=== PATIENT | female | born 2005 | race Hispanic/Latino ===

== ENCOUNTER 2024-09-22 00:24 | Observation (INO) | payer BC, SELFPAY ==
[2024-09-22] VITALS (18 sets, daily range): BP systolic 101–144; BP diastolic 59–91; PULSE 74–137; RESP 16–32; TEMP 37.1–37.9; O2SAT 99–100; BMI 28.0
--- NOTE | 2024-09-22 00:27 | ECG_ITS ---
Test Date: 2024-09-22 00:48:49 Measurements Intervals [place] Rate: 129 P: 68 SD: 172 QRS: 16 QRSD: 86 T: 45 QT: 387 QTc: 567 Interpretive Statements SINUS TACHYCARDIA POSSIBLE RIGHT VENTRICULAR CONDUCTION DELAY ABNORMAL ECG No previous ECG available for comparison Electronically Signed On 09-22-2024 06:22:25 CDT by Fawad Murillo D.O.
[2024-09-22 00:52] LABS: Basophils Percent Auto 0.3 % (0.2-1.2); Hematocrit 35.2 % (37.0-47.0); Hemoglobin 11.5 g/dL (12.0-15.0); Immature Granulocyte Absolute 0.01 K/mm3 (0.00-0.031); Immature Granulocyte Percent A 0.2 % (0-0.5); Lymphocytes Absolute Auto 1.11 K/mm3 (0.9-3.2); Lymphocytes Percent Auto 18.1 % (18.3-44.2); Mean Corpuscular HGB Conc 32.7 g/dl (32-36); Mean Corpuscular Hemoglobin 28.3 pg (26-34); Mean Corpuscular Volume 86.5 fl (80-100); Mean Platelet Volume 12.6 fl (7.4-10.4); Monocytes Absolute Auto 0.3 K/mm3 (0.1-0.6); Monocytes Percent Auto 4.9 % (2.6-8.5); Neutrophils Absolute Auto 4.7 K/mm3 (1.3-6.7); Neutrophils Percent Auto 76.5 % (45.5-73.1); Platelet Count Result 227 k/mm3 (150-375); Red Blood Count 4.07 M/mm3 (4.2-5.4); Red Cell Distribution Width 13.8 % (11.5-14.5); White Blood Count 6.1 K/mm3 (4.5-10.0)
[2024-09-22] MEDS: LACTATED RINGERS 1,000 ML 999 ML IV CONT ×3 (00:53→08:23)
[2024-09-22 00:59] LABS: Salicylate < 1.0 mg/dL (2-20)
[2024-09-22 01:00] LABS: Acetaminophen 70 ug/mL (10-30); Alanine Aminotransferase 16 U/L (6-35); Albumin Level 4.9 g/dL (3.7-5.6); Alkaline Phosphatase 65 U/L (45-116); Anion Gap 16 mmol/L (4-12); Aspartate Amino Transferase 26 U/L (14-36); Bilirubin,Total 0.3 mg/dL (0.2-1.3); Blood Urea Nitrogen 11 mg/dL (8-21); Calcium 9.9 mg/dL (8.9-10.7); Carbon Dioxide 18 mmol/L (22-30); Chloride 107 mmol/L (98-107); Estimated CRCL calculation 107 ml/min; Estimated Glomerular Filt Rate > 60; Ethanol < 10 mg/dL (<10); Glucose 119 mg/dL (65-110); Potassium 3.8 mmol/L (3.4-5.0); Sodium 141 mmol/L (134-143); Total Protein 8.6 g/dL (6.3-8.6)
[2024-09-22 01:01] LABS: Fractional Inspired Oxygen 21 %; HCO3 VBG 16.7 mEq/l (24.0-30.0); PO2 VBG 48.1 mmHg (35.0-45.0); pH VBG 7.401 (7.300-7.400)
[2024-09-22 01:03] LABS: Device ROOM AIR; PCO2 VBG 27.5 mmHg (42.0-48.0)
--- OUTSIDE RECORDS SUMMARY | 2024-09-22 01:05 | XMS_ITS | Continuity of Care Document ---
Author Organization [facility] Address [address] [place] [address] [place] [id number] Phone Care Team Providers Care Client Insights Consultant Name Role Phone Guanaco PEREZ Mitchell BUCKLEY Unavailable Unavailable Procedures Procedure Date Therapeutic Activities Therapeutic Exercise Progress Note Therapeutic Activities Neuromuscular Re-Ed Therapeutic Exercise Therapeutic Activities Neuromuscular Re-Ed Therapeutic Exercise Therapeutic Activities Neuromuscular Re-Ed Therapeutic Exercise Therapeutic Activities Neuromuscular Re-Ed Therapeutic Exercise Therapeutic Activities Neuromuscular Re-Ed Therapeutic Exercise Therapeutic Activities Neuromuscular Re-Ed Therapeutic Exercise Therapeutic Activities Neuromuscular Re-Ed Therapeutic Exercise Therapeutic Activities Neuromuscular Re-Ed Therapeutic Exercise Therapeutic Activities Neuromuscular Re-Ed Therapeutic Exercise Therapeutic Activities Neuromuscular Re-Ed Therapeutic Activities Neuromuscular Re-Ed Therapeutic Activities Neuromuscular Re-Ed Therapeutic Activities Neuromuscular Re-Ed Therapeutic Exercise Therapeutic Activities Neuromuscular Re-Ed Therapeutic Exercise Therapeutic Activities Neuromuscular Re-Ed Therapeutic Exercise Therapeutic Activities Neuromuscular Re-Ed Therapeutic Exercise Therapeutic Activities Neuromuscular Re-Ed Therapeutic Exercise Therapeutic Activities Therapeutic Exercise Neuromuscular Re-Ed Progress Note Therapeutic Activities Neuromuscular Re-Ed Therapeutic Exercise Therapeutic Activities Neuromuscular Re-Ed Therapeutic Exercise Therapeutic Activities Neuromuscular Re-Ed Therapeutic Exercise Therapeutic Activities Neuromuscular Re-Ed Therapeutic Exercise Therapeutic Activities Neuromuscular Re-Ed Therapeutic Exercise Therapeutic Activities Neuromuscular Re-Ed Therapeutic Exercise Therapeutic Activities Neuromuscular Re-Ed Therapeutic Exercise Therapeutic Activities Neuromuscular Re-Ed Therapeutic Exercise Therapeutic Activities Neuromuscular Re-Ed Therapeutic Exercise Therapeutic Activities Neuromuscular Re-Ed Therapeutic Exercise Progress Note Therapeutic Activities Neuromuscular Re-Ed Therapeutic Exercise Therapeutic Activities Neuromuscular Re-Ed Therapeutic Exercise Progress Note Therapeutic Activities Therapeutic Exercise Therapeutic Activities Neuromuscular Re-Ed Therapeutic Exercise Therapeutic Activities Neuromuscular Re-Ed Therapeutic Exercise Therapeutic Activities Neuromuscular Re-Ed Therapeutic Exercise Therapeutic Activities Neuromuscular Re-Ed Therapeutic Exercise Therapeutic Activities Neuromuscular Re-Ed Therapeutic Exercise Therapeutic Activities Neuromuscular Re-Ed Therapeutic Exercise Therapeutic Activities Neuromuscular Re-Ed Therapeutic Exercise Therapeutic Activities Neuromuscular Re-Ed Therapeutic Exercise Therapeutic Activities Neuromuscular Re-Ed Therapeutic Exercise Therapeutic Activities Neuromuscular Re-Ed Therapeutic Exercise Therapeutic Activities Neuromuscular Re-Ed Therapeutic Exercise Therapeutic Activities Neuromuscular Re-Ed Therapeutic Exercise Therapeutic Activities Neuromuscular Re-Ed Therapeutic Exercise Therapeutic Activities Neuromuscular Re-Ed Therapeutic Exercise Therapeutic Activities Neuromuscular Re-Ed Therapeutic Exercise Therapeutic Activities Neuromuscular Re-Ed Therapeutic Exercise Therapeutic Activities Neuromuscular Re-Ed Therapeutic Exercise Therapeutic Activities Neuromuscular Re-Ed Therapeutic Exercise Electrical Stimulation Therapeutic Activities Neuromuscular Re-Ed Therapeutic Exercise Manual Therapy Electrical Stimulation Therapeutic Activities Neuromuscular Re-Ed Therapeutic Exercise Manual Therapy Electrical Stimulation Therapeutic Activities Neuromuscular Re-Ed Therapeutic Exercise Manual Therapy Electrical Stimulation Therapeutic Activities Neuromuscular Re-Ed Therapeutic Exercise Therapeutic Activities Neuromuscular Re-Ed Hot or Cold Pack Therapeutic Exercise Electrical Stimulation Therapeutic Activities Therapeutic Exercise Neuromuscular Re-Ed Manual Therapy Hot or Cold Pack Electrical Stimulation Progress Note Therapeutic Activities Neuromuscular Re-Ed Therapeutic Exercise Manual Therapy Hot or Cold Pack Electrical Stimulation Neuromuscular Re-Ed Therapeutic Exercise Manual Therapy Hot or Cold Pack Electrical Stimulation Neuromuscular Re-Ed Therapeutic Exercise Manual Therapy Hot or Cold Pack Electrical Stimulation Neuromuscular Re-Ed Therapeutic Exercise Manual Therapy Hot or Cold Pack Electrical Stimulation PT Evaluation Moderate Complexity Neuromuscular Re-Ed Therapeutic Exercise Manual Therapy Electrical Stimulation Advance Directives Directive Yes / No Effective Date File Name No Information Encounters Encounter Description Practice Location Reason(s) For Visit Diagnoses Date Provider Providers Copied on Encounter [facility] [address] [facility], [place], [place], [id number], tel:[phone] [place] No Information 4 Muehl Mitchell. [address] [place] [address], [facility] [address], [place], [facility], . tel:[phone] Referring Provider: Junie VaughnSteve [address], [place], [address]. tel:[phone] [facility] [address] [place], [place] [address], [place], [place], [id number], tel:[phone] [place] No Information 4 Muehl Mitchell. [address] [place] [address], [address], [place], [facility], . tel:[phone] Referring Provider: Paul Vaughn [address], [place], [address]. tel:[phone] [address], [place], [place], [id number], tel:[phone] [place] No Information 0 4 Muashlil Mitchell. [address] [place] [address], [address], [place], [facility], . tel:[phone] Referring Provider: Paul Vaughn [address], [place], [address]. tel:[phone] [facility] [address] [place], [place] [address], [place], [place], [id number], tel:[phone] [place] No Information 0 4 Modglin Mathew. . Referring Provider: Paul Vaughn [address], [place], [address]. tel:[phone] [facility] [address], [place], [place], [id number], tel:[phone] [place] No Information Mar-1 5-202 4 Frederick Macedo. . Referring Provider: Xiomara Webster Paul [address], [place], [address]. tel:[phone], [id number], tel:[phone] [place] No Information Mar-1 3-202 4 Muehl Mitchell. [address] [place] [address], [address], [place], [facility], . tel:[phone] Referring Provider: Xiomara Webster [address], [place], [address]. tel:[phone] [place] [address], [id number], tel:[phone] [place] No Information Mar-0 8-202 4 Muehl Mitchell. [address] [place] [address], [address], [place], [facility], . tel:[phone] Referring Provider: Xiomara Webster [address], [place], [address]. tel:[phone], [id number], tel:[phone] [place] No Information Mar-0 4-202 4 Muehl Mitchell. [address] [place] [address], [facility] [address], [place], [facility], . tel:[phone] Referring Provider: Xiomara Webster [address], [place], [address]. tel:[phone], [id number], tel:[phone] [place] No Information Mar-0 1-202 4 Muehl Mitchell. [address] [place] [address], [address], [place], [facility], . tel:[phone] Referring Provider: Xiomara Webster [address], [place], [address]. tel:[phone] [place] [address], [id number], tel:[phone] [place] No Information 4 Muehl Mitchell. [address] [place] [address], [address], [place], [facility], . tel:[phone] Referring Provider: Xiomara Webster [address], [place], [address]. tel:[phone], [id number], tel:[phone] [place] No Information 4 Muehl Mitchell. [address] [place] [address], [address], [place], [facility], . tel:[phone] Referring Provider: Xiomara Webster [address], [place], [address]. tel:[phone], [id number], tel:[phone] [place] No Information 4 Muehl Mitchell. [address] [place] [address], [address], [place], [facility], . tel:[phone] Referring Provider: Xiomara Webster [address], [place], [address]. tel:[phone] [place] [address], [id number], tel:[phone] [place] No Information 4 Muehl Mitchell. [address] [place] [address], [address], [place], [facility], . tel:[phone] Referring Provider: Xiomara Webster [address], [place], [address]. tel:[phone] [facility] [address] [place] [address] [address], [place], [place], [id number], tel:[phone] [place] No Information 4 Modglin Mathew. . Referring Provider: Paul Vaughn [address], [place], [address]. tel:[phone] [facility] [address] [place] [address], [place], [place], [id number], tel:[phone] [place] No Information 4 Muehl Mitchell. [address] [facility], [address], [place] [address], . tel:[phone] Referring Provider: Paul Vaughn [address], [place], [address]. tel:[phone] [facility] [address] [place] [address], [place], [id number], tel:[phone] [place] No Information 4 Modglin Mathew. . Referring Provider: Paul Vaughn [address], [place], [address]. tel:[phone] [facility] [address] [place] [address], [place], [place], [id number], tel:[phone] [place] No Information 4 Muehl Mitchell. [address] [facility], [address], [place], [facility], . tel:[phone] Referring Provider: Paul Vaughn [address], [place], [address]. tel:[phone] [place] [address] [place] [address] [address], [place], [place], [id number], tel:[phone] [place] No Information 4 Modglin Mathew. . Referring Provider: Paul Vaughn [address], [place], [address]. tel:[phone] [address], [place], [place], [id number], tel:[phone] [place] No Information 4 Muehl Mitchell. [address] [place] [address], [address], [place], [facility], . tel:[phone] Referring Provider: Paul Vaughn [address], [place], [address]. tel:[phone] [address], [place], [place], [id number], tel:[phone] [place] No Information 4 Muehl Mitchell. [address] [place] [address], [address], [place], [facility], . tel:[phone] Referring Provider: Paul Vaughn [address], [place], [address]. tel:[phone] [address], [place], [place], [id number], tel:[phone] [place] No Information 4 Muehl Mitchell. [address] [place] [address], [address], [place], [facility], . tel:[phone] Referring Provider: Paul Vaughn [address], [place], [address]. tel:[phone] [address], [place], [id number], tel:[phone] [place] No Information 3 Muehl Mitchell. [address] [place] [address], [address], [place], [facility], . tel:[phone] Referring Provider: Paul Vaughn [address], [place], [address]. tel:[phone], [place], [place], [id number], tel:[phone] [place] No Information Dec-2 0-202 3 Muehl Mitchell. [address] [place] [address], [address], [place], [facility], . tel:[phone] Referring Provider: Xiomara Webster, [address], [place], [address]. tel:[phone] [place] [address], [place], [place], [id number], tel:[phone] [place] No Information Dec- 3- 3 Muehl Mitchell. [address] [place] [address], [address], [place], [facility], . tel:[phone] Referring Provider: Xiomara Webster, [address], [place], [address]. tel:[phone] [place] [address], [place], [place], [id number], tel:[phone] [place] No Information Dec-0 4- 3 Dwaine Wakefield. . Referring Provider: Xiomara Webster, [address], [place], [address]. tel:[phone], [id number], tel:[phone] [place] No Information Nov-2 2- 3 Muehl Mitchell. [address] [place] [address], [address], [place], [facility], . tel:[phone] Referring Provider: Xiomara Webster [address], [place], [address]. tel:[phone] [address], [place], [place], [id number], tel:[phone] [place] No Information Nov-1 5- 3 Muehl Mitchell. [address] [place] [address], [address], [place], [facility], . tel:[phone] Referring Provider: Xiomara Webster [address], [place], [address]. tel:[phone], [id number], tel:[phone] [place] No Information Feb-0 3 Muehl Mitchell. [address] [place] [address], [address], [place], [facility], . tel:[phone] Referring Provider: Xiomara Webster [address], [place], [address]. tel:[phone], [id number], tel:[phone] [place] No Information 0 3 Muehl Mitchell. [address] [place] [address], [address], [facility], . tel:[phone] Referring Provider: Xiomara Webster [address], [place], [address]. tel:[phone], [id number], tel:[phone] [place] No Information Jan-2 3 Muehl Mitchell. [address] [place] [address], [facility] [address], [place], [facility], . tel:[phone] Referring Provider: Xiomara Webster [address], [place], [address]. tel:[phone], [id number], tel:[phone] [place] No Information Jan-1 - 3 Muehl Mitchell. [address] [place] [address], [facility] [address], [place], [facility], . tel:[phone] Referring Provider: Xiomara Webster [address], [place], [address]. tel:[phone] [address] [facility], [place], [place], [id number], tel:[phone] [place] No Information 3 Muehl Mitchell. [address] [place] [address], [address], [place], [facility], . tel:[phone] Referring Provider: Xiomara Webster [address], [place], [address]. tel:[phone] [place] [address], [place], [place], [id number], tel:[phone] [place] No Information 3 Muehl Mitchell. [address] [place] [address], [facility] [address], [place], [facility], . tel:[phone] Referring Provider: Xiomara Webster [address], [place], [address]. tel:[phone], [id number], tel:[phone] [place] No Information Sep-2 3 Muehl Mitchell. [address] [place] [address], [address], [place], [facility], . tel:[phone] Referring Provider: Xiomara Webster [address], [place], [address]. tel:[phone], [id number], tel:[phone] [place] No Information Sep-2 0 3 Muehl Mitchell. [address] [place] [address], [address], [place], [facility], . tel:[phone] Referring Provider: Xiomara Webster [address], [place], [address]. tel:[phone] [facility] [address] [place], [place] [address], [place], [place], [id number], tel:[phone] [place] No Information 3 Muehl Mitchell. [address] [facility], [address], [place], [facility], . tel:[phone] Referring Provider: Paul Vaughn [address], [place], [address]. tel:[phone] [place] [address] [place], [place] [address], [place], [place], [id number], tel:[phone] [place] No Information 3 Dellamano Ashu. . Referring Provider: Paul Vaughn [address], [place], [address]. tel:[phone] [place], [place] [address] [address], [place], [place], [id number], tel:[phone] [place] No Information 3 Muehl Mitchell. [address] [facility], [address], [place], [facility], . tel:[phone] Referring Provider: Paul Vaughn [address], [place], [address]. tel:[phone] [facility] [address] [place], [place] [address], [place], [place], [id number], tel:[phone] [place] No Information 3 Dellamano Ashu. . Referring Provider: Paul Vaughn [address], [place], [address]. tel:[phone] [address], [place], [place], [id number], tel:[phone] [place] No Information 3 Muehl Mitchell. [address] [facility], [address], [place], [facility], . tel:[phone] Referring Provider: Paul Vaughn [address], [place], [address]. tel:[phone] [place] [address], [id number], tel:[phone] [place] No Information 3 Muehl Mitchell. [address] [place] [address], [address], [place], [facility], . tel:[phone] Referring Provider: Xiomara Webster [address], [place], [address]. tel:[phone], [id number], tel:[phone] [place] No Information 3 Muehl Mitchell. [address] [place] [address], [address], [place], [facility], . tel:[phone] Referring Provider: Xiomara Webster [address], [place], [address]. tel:[phone], [id number], tel:[phone] [place] No Information 3 Muehl Mitchell. [address] [place] [address], [address], [place], [facility], . tel:[phone] Referring Provider: Xiomara Webster [address], [place], [address]. tel:[phone], [id number], tel:[phone] [place] No Information 3 Muehl Mitchell. [address] [place] [address], [address], [place], [facility], . tel:[phone] Referring Provider: Xiomara Webster [address], [place], [address]. tel:[phone] [facility] [address], [place], [place], [id number], [place] tel:[phone] [place] No Information 3 Dellamano Ashu. . Referring Provider: Xiomara Webster, [address], [place], [address]. tel:[phone] [facility] [address], [place], [place], [id number], [place] tel:[phone] [place] No Information 3 Dellamano Ashu. . Referring Provider: Xiomara Webster [address], [place], [address]. tel:[phone] [facility] [address], [place], [place], [id number], tel:[phone] [place] No Information 3 Modglin Mathew. . Referring Provider: Xiomara Webster [address], [place], [address]. tel:[phone] [facility] [address], [place], [place], [id number], tel:[phone] [place] No Information 3 Dellamano Ashu. . Referring Provider: Xiomara Webster [address], [place], [address]. tel:[phone] [facility] [address], [place], [place], [id number], [place] tel:[phone] [place] No Information 3 Dellamano Ashu. . Referring Provider: Xiomara Webster [address], [place], [address]. tel:[phone] [facility] [address], [place], [place], [id number], [place] tel:[phone] [place] No Information 3 Muehl Mitchell. [address] [place] [address], [address], [place], [facility], . tel:[phone] Referring Provider: Junie Vaughn[address], [place], [address]. tel:[phone], [id number], tel:[phone] [place] No Information 3 Muehl Mitchell. [address] [place] [address], [address], [place], [facility], [place]. tel:[phone] Referring Provider: Paul Vaughn [address], [place], [address]. tel:[phone], [id number], tel:[phone] [place] No Information 3 Muehl Mitchell. [address] [place] [address], [address], [place], [facility], [place]. tel:[phone] Referring Provider: Paul Vaughn [address], [place], [address]. tel:[phone], [id number], tel:[phone] [place] No Information 3 Muehl Mitchell. [address] [place] [address], [address], [place], [facility], [place]. tel:[phone] Referring Provider: Junie Vaughn[address], [place], [address]. tel:[phone], [id number], tel:[phone] [place] No Information 3 Muehl Mitchell. [address] [place] [address], [address], [place], [facility], [place]. tel:[phone] Referring Provider: Xiomara Webster [address], [place], [address]. tel:[phone] [place] [address], [place], [place], [id number], tel:[phone] [place] No Information Sivakumar-2 0-202 3 Muehl Mitchell. [address] [place] [address], [address], [place], [facility], . tel:[phone] Referring Provider: Xiomara Webster [address], [place], [address]. tel:[phone], [id number], tel:[phone] [place] No Information Sivakumar-1 5-202 3 Muehl Mitchell. [address] [place] [address], [address] [address], . tel:[phone] Referring Provider: Xiomara Webster [address], [place], [address]. tel:[phone], [id number], tel:[phone] [place] No Information Sivakumar-0 8-202 3 Muehl Mitchell. [address] [place] [address], [address], [place], [facility], . tel:[phone] Referring Provider: Xiomara Webster [address], [place], [address]. tel:[phone], [id number], tel:[phone] [place] No Information Sivakumar-0 6-202 3 Muehl Mitchell. [address] [place] [address], [address], [place], [facility], . tel:[phone] Referring Provider: Xiomara Webster [address] [place], [place], [address]. tel:[phone], [id number], tel:[phone] [place] No Information 2 3 Muehl Mitchell. [address] [place] [address], [address], [facility], . tel:[phone] Referring Provider: Paul Vaughn [address], [place], [address]. tel:[phone], [id number], tel:[phone] [place] No Information 3 Shyl Mitchell. [address] [place] [address], [address], [facility], . tel:[phone] Referring Provider: Paul [address], [place], [address]. tel:[phone], [id number], tel:[phone] [place] No Information 3 Guanaco Medrano. [address] [place] [address], [address], [facility], . tel:[phone] Referring Provider: Paul [address], [place], [address]. tel:[phone] Family History Family Member Type Diagnosis Age At Onset No Information Payers Payer name Insurance type Covered green party ID Authorandressaa timirza(s) Self Pay - G[employer] Social History Type Description Quantity Date Captured Comments Sex Female Smoking Status No Information Chief Complaint And Reason For Visit No Information Reason For Referral Reason For Referral No Information History Of Present Illness Encounter Date Complaint History Of Prese nt Illness No Information Functional Status Date Functional Assessmen t No Information Instructions Date Instruction Additional Infor mation No Information Assessments Type Assessment Date No Information Patient Care Teams Name Effective Dates (start - stop) Status Members No Information
[2024-09-22] MEDS: MAGNESIUM SULF 2 GM/WATER 50ML 2 GM/50 ML BAG IVPB (01:27)
[2024-09-22] MEDS: LORazepam INJ (*CRX) 2 MG/ML VIAL 1 MG IV PUSH ×2 (01:30→06:45)
[2024-09-22 01:34] LABS: Beta-Hydroxybutyrate/Acetoacetate 0.15 mmol/L (0.02-0.27)
[2024-09-22 01:36] LABS: Influenza A QL RT-PCR Negative (Negative); Influenza B QL RT-PCR Negative (Negative); RSV RNA, RT-PCR Negative (Negative); SARS-CoV-2 RNA PCR Negative (Negative)
--- NOTE | 2024-09-22 01:43 | PC.NURSE ---
edp dr. maher verbalized magnesium rate to be 100mls/ hour. this rn confirmed rate/time/ dose/ medication/ patient. edp dr. maher confirmed rate change of magnesium. GOLD Gresham to witness rate change
[2024-09-22 01:45] LABS: BEDSIDEPREGUCG Negative (Negative)
[2024-09-22 01:48] LABS: Add Urine Microscopic? YES; Appearance Urine Clear (Clear); Bacteria Urine 2+ /hpf; Bilirubin Urine Negative (Negative); Blood Urine Negative (Negative); Color Urine Yellow (Yellow); Glucose Urine UA Negative (Negative); Ketones Urine Negative (Negative); Leukocyte Esterase Ur 2+ LEU/UL (Negative); Nitrate Urine Negative (Negative); Non Pathogenic Casts 0-2; Protein Urine Negative (Negative); RBC Urine 0-2 /hpf (0-2); Specific Grav Ur 1.026 (1.001-1.035); Squamous Epithelial Cell Urine Occasional /hpf (Few); Urobilinogen Urine 0.2 mg/dL (<2.0)
--- NOTE | 2024-09-22 01:54 | ED_ITS ---
HPI - Psych General Chief Complaint: Psychiatric Symptoms Stated Complaint: took pills, drank rubbing alcohol to hurt self Time Seen by Provider: 09/22/24 00:29 History of Present Illness HPI Narrative: Patient presents here after suicide attempt, she had broken up with an ex back in June and has been suicidal since then, she had an attempt back in June and one earlier today where she took a handful of Tylenol and a handful of Benadryl; she is feeling slightly dizzy and nauseous and anxious. Related Data Allergies Allergy/AdvReac Type Severity Reaction Status Date / Time No Known Allergies Allergy Verified 09/22/24 00:48 Review of Systems 2 Review of Systems: All systems reviewed & are unremarkable except as noted in HPI and below PMFSH Social History Social History Substance use type: unknown Exam 2 Narrative: EXAMINATION OF ORGAN SYSTEMS/BODY AREAS: Constitutional: Vital signs per nursing GENERAL: Appears slightly anxious HEAD: Normal with no signs of head trauma. EYES: EOMI, conjunctiva normal ENT: Hearing grossly intact LUNGS: Nonlabored breathing. HEART: Tachycardic ABD: [Soft], [nontender to palpation] EXT: Normal range of motion SKIN: [No rashes or lesions.] NEURO: [Alert and oriented x 3. No gross focal sensory or strength deficits.] PSYCH: Anxious affect Course Vital Signs Vital signs: Vital Signs Temperature 99.7 F H 09/22/24 00:27 Pulse Rate 137 H 09/22/24 00:27 Respiratory Rate 32 H 09/22/24 00:27 Blood Pressure 144/80 H 09/22/24 00:27 Pulse Oximetry 100 09/22/24 00:27 Oxygen Delivery Room Air 09/22/24 00:27 Temperature 99.7 F H 09/22/24 00:27 Pulse Rate 126 H 09/22/24 02:31 Respiratory Rate 32 H 09/22/24 03:05 Blood Pressure 131/76 09/22/24 02:31 Pulse Oximetry 100 09/22/24 02:31 Oxygen Delivery Room Air 09/22/24 00:27 MDM - Psych MDM Narrative Medical decision making narrative: Patient here with intentional OD of APAP, benadryl, rubbing alcohol. She is tachycardic here and slightly anxious, I did broad tox workup, started fluids, nursing called poison Control Center. EKG on my independent interpretation shows sinus tachycardia rate 129 SC 172 QRS 86 QTC 567, concerning for prolonged QT, I did order supplemental magnesium and potassium. Small dose of Ativan given for her anxiety and afterwards she is now much more comfortable. Tylenol level unfortunately elevated and in discussion with with Control Center, NAC initiated. She is not acidotic here and ketones are negative. LFTs negative. Discussed with hospitalist, will admit to ICU, discussed with pasteuriser operator. Lab Data 09/22/24 00:42 09/22/24 00:42 Labs: Lab Results 09/22/24 09/22/24 09/22/24 Range/Units 00:42 00:54 01:38 WBC 6.1 (4.5-10.0) K/mm3 RBC 4.07 L (4.2-5.4) M/mm3 Hgb 11.5 L (12.0-15.0) g/dL Hct 35.2 L (37.0-47.0) % MCV 86.5 (80-100) fl MCH 28.3 (26-34) pg MCHC 32.7 (32-36) g/dl RDW 13.8 (11.5-14.5) % Plt Count 227 (150-375) k/mm3 MPV 12.6 H (7.4-10.4) fl Immature Gran % (Auto) 0.2 (0-0.5) % Neut % (Auto) 76.5 H (45.5-73.1) % Lymph % (Auto) 18.1 L (18.3-44.2) % [place] % (Auto) 4.9 (2.6-8.5) % Eos % (Auto) 0.0 (0-4.4) % Baso % (Auto) 0.3 (0.2-1.2) % Lymph # (Auto) 1.11 (0.9-3.2) K/mm3 [place] # (Auto) 0.3 (0.1-0.6) K/mm3 Eos # (Auto) 0.0 (0-0.3) K/mm3 Baso # (Auto) 0.0 (0.0-0.1) K/mm3 Abs Immat Gran (auto) 0.01 (0.00-0.031) K/mm3 Absolute Neuts (auto) 4.7 (1.3-6.7) K/mm3 Absolute Nucleated RBC 0.000 (0.0-0.012) K/mm3 Nucleated RBC % 0.0 (0.0-0.2) % Sodium 141 (134-143) mmol/L Potassium 3.8 (3.4-5.0) mmol/L Chloride 107 (98-107) mmol/L Carbon Dioxide 18 L (22-30) mmol/L Anion Gap 16 H (4-12) mmol/L BUN 11 (8-21) mg/dL Creatinine 0.81 (0.7-1.0) mg/dL Estim Creat Clear Calc 107 ml/min Estimated GFR > 60 (59 - ) Glucose 119 H (65-110) mg/dL Calcium 9.9 (8.9-10.7) mg/dL Total Bilirubin 0.3 (0.2-1.3) mg/dL AST 26 (14-36) U/L ALT 16 (6-35) U/L Alkaline Phosphatase 65 (45-116) U/L Total Protein 8.6 (6.3-8.6) g/dL Albumin 4.9 (3.7-5.6) g/dL Beta-Hydroxybutyrate/Acetoacetate 0.15 (0.02-0.27) mmol/L TSH (Reflex) 1.650 (0.465-4.68) uIU/mL Urine Color Yellow (Yellow) Urine Appearance Clear (Clear) Urine pH 6.0 (5.0-9.0) Ur Specific [place] 1.026 (1.001-1.035) Urine Protein Negative (Negative) mg/dL Urine Glucose (UA) Negative (Negative) mg/dL Urine Ketones Negative (Negative) mg/dL Ur Blood (Man) Negative (Negative) Urine Nitrate Negative (Negative) Urine Bilirubin Negative (Negative) Urine Urobilinogen 0.2 (<2.0) mg/dL Leukocyte Esterase Rfl 2+ H (Negative) FRANCA/UL Urine RBC 0-2 (0-2) /hpf Urine WBC 6-10 H (0-3) /hpf Ur Squamous Epith Cells Occasional (Few) /hpf Urine Bacteria 2+ H /hpf Urine Casts 0-2 POC Urine HCG, Qual (Negative) Salicylates < 1.0 L (2-20) mg/dL Urine Opiates Screen Negative (Negative) Urine Methadone Screen Negative (Negative) Acetaminophen 70 H (10-30) ug/mL Ur Barbiturates Screen Negative (Negative) Ur Phencyclidine Scrn Negative (Negative) Ur Amphetamine Screen Negative (Negative) U Benzodiazepines Scrn Negative (Negative) Urine Cocaine Screen Negative (Negative) U Cannabinoids Screen Negative (Negative) Ethyl Alcohol < 10 (<10) mg/dL Influenza A (RT-PCR) Negative (Negative) Influenza B (RT-PCR) Negative (Negative) RSV (RT-PCR) Negative (Negative) SARS-CoV-2 RNA (RT-PCR) Negative (Negative) 09/22/24 Range/Units 01:43 WBC (4.5-10.0) K/mm3 RBC (4.2-5.4) M/mm3 Hgb (12.0-15.0) g/dL Hct (37.0-47.0) % MCV (80-100) fl MCH (26-34) pg MCHC (32-36) g/dl RDW (11.5-14.5) % Plt Count (150-375) k/mm3 MPV (7.4-10.4) fl Immature Gran % (Auto) (0-0.5) % Neut % (Auto) (45.5-73.1) % Lymph % (Auto) (18.3-44.2) % [place] % (Auto) (2.6-8.5) % Eos % (Auto) (0-4.4) % Baso % (Auto) (0.2-1.2) % Lymph # (Auto) (0.9-3.2) K/mm3 [place] # (Auto) (0.1-0.6) K/mm3 Eos # (Auto) (0-0.3) K/mm3 Baso # (Auto) (0.0-0.1) K/mm3 Abs Immat Gran (auto) (0.00-0.031) K/mm3 Absolute Neuts (auto) (1.3-6.7) K/mm3 Absolute Nucleated RBC (0.0-0.012) K/mm3 Nucleated RBC % (0.0-0.2) % Sodium (134-143) mmol/L Potassium (3.4-5.0) mmol/L Chloride (98-107) mmol/L Carbon Dioxide (22-30) mmol/L Anion Gap (4-12) mmol/L BUN (8-21) mg/dL Creatinine (0.7-1.0) mg/dL Estim Creat Clear Calc ml/min Estimated GFR (59 - ) Glucose (65-110) mg/dL Calcium (8.9-10.7) mg/dL Total Bilirubin (0.2-1.3) mg/dL AST (14-36) U/L ALT (6-35) U/L Alkaline Phosphatase (45-116) U/L Total Protein (6.3-8.6) g/dL Albumin (3.7-5.6) g/dL Beta-Hydroxybutyrate/Acetoacetate (0.02-0.27) mmol/L TSH (Reflex) (0.465-4.68) uIU/mL Urine Color (Yellow) Urine Appearance (Clear) Urine pH (5.0-9.0) Ur Specific [place] (1.001-1.035) Urine Protein (Negative) mg/dL Urine Glucose (UA) (Negative) mg/dL Urine Ketones (Negative) mg/dL Ur Blood (Man) (Negative) Urine Nitrate (Negative) Urine Bilirubin (Negative) Urine Urobilinogen (<2.0) mg/dL Leukocyte Esterase Rfl (Negative) FRANCA/UL Urine RBC (0-2) /hpf Urine WBC (0-3) /hpf Ur Squamous Epith Cells (Few) /hpf Urine Bacteria /hpf Urine Casts POC Urine HCG, Qual Negative (Negative) Salicylates (2-20) mg/dL Urine Opiates Screen (Negative) Urine Methadone Screen (Negative) Acetaminophen (10-30) ug/mL Ur Barbiturates Screen (Negative) Ur Phencyclidine Scrn (Negative) Ur Amphetamine Screen (Negative) U Benzodiazepines Scrn (Negative) Urine Cocaine Screen (Negative) U Cannabinoids Screen (Negative) Ethyl Alcohol (<10) mg/dL Influenza A (RT-PCR) (Negative) Influenza B (RT-PCR) (Negative) RSV (RT-PCR) (Negative) SARS-CoV-2 RNA (RT-PCR) (Negative) ABG Data ABG results: 09/22/24 00:42 VBG pH 7.401 H VBG pCO2 27.5 L* VBG pO2 48.1 H VBG HCO3 16.7 L O2 Delivery Device Room air O2 Liters/Min Not Reportable FiO2 21 Critical Care Time Critical Care Time Critical Care Time: Yes Total Critical Care Time: 42 Discharge Plan Discharge Clinical Impression: Suicide attempt by acetaminophen overdose, Intentional diphenhydramine overdose, Prolonged QT interval Patient Disposition: Still a Patient Condition: Serious
[2024-09-22 02:01] LABS: Amphetamine Screen Urine Negative (Negative); Barbiturate Screen Urine Negative (Negative); Benzodiazepines Screen Urine Negative (Negative); Cannabinoid Screen Urine Negative (Negative); Cocaine Screen Urine Negative (Negative); Methadone Screen Urine Negative (Negative); Opiate Screen Urine Negative (Negative); Phencyclidine Screen Urine Negative (Negative)
[2024-09-22] MEDS: ACETYLCYSTEINE IVPB ×3 (02:17→07:20)
[2024-09-22] MEDS: WATER IVPB ×2 (02:17→03:35)
[2024-09-22] MEDS: DEXTROSE 5% IVPB ×3 (02:17→07:20)
[2024-09-22] MEDS: POTASSIUM CHLORIDE 20 MEQ ER TABLET 40 MEQ PO (02:22)
--- NOTE | 2024-09-22 03:05 | PM.IMHP ---
H&P: HPI History of Present Illness Date/Time: 09/22/24 03:05 Chief Complaint: Intentional overdose. Narrative: This is a 18-year-old female with history of major depression and suicide attempt in June 2024 who presented to the emergency department via private vehicle accompanied by her mother and brother for evaluation after an intentional overdose. The patient admits that she took ?somewhere between 15 to 20 pills each? of acetaminophen and diphenhydramine in addition to drinking an unknown amount of rubbing alcohol at about 17:00 last evening. She admits that she did this in attempts to take her own life. Several hours later she told her brother and they came in for evaluation. At some point she vomited; it is unknown how long after ingestion. At the time of my evaluation she complains of feelings of dizziness, anxiety, and nausea. She seems to be hallucinating at times and some of her answers to my questions are nonsensical or did not make sense in the context of the question. She denies visual changes, abdominal pain, palpitations, chest pain, shortness of breath, and headache. She denies ingesting anything else other than what is mentioned as above. In the ED: Vital signs on arrival include a temperature of 99.7?, blood pressure 144/80, pulse 137, respiratory rate 32, SpO2 100% on room air. Labs were significant for WBC count of 6.1, hemoglobin 11.5, carbon dioxide 18, anion gap 16, beta hydroxybutyrate 0.15, TSH 1.650 urinalysis was positive for 2+ leukocyte esterase, 6 to 10 WBC, 2+ bacteria, and occasional squamous cells noted on microscopy. Acetaminophen level was 70. Salicylate and ethyl alcohol levels were undetectable. Urine drug screen negative. EKG showed sinus tachycardia with a QTC of 567. She received magnesium sulfate 2 g and potassium chloride 40 mEq. Poison Control was contacted and they recommended starting acetylcysteine. She is being admitted to ICU in this setting for close monitoring. Review of Systems Review of Systems: 12 systems were reviewed and are negative except for as per HPI. [facility] Past Medical History Medical History (Updated 09/22/24 @ 06:02 by Allison Mark PA-C) Suicide attempt June Anxiety Depression Surgical History Surgical History (Updated 09/22/24 @ 06:02 by Allison Mark PA-C) History of repair of anterior cruciate ligament of right knee Family History Family History Grandparent Chronic obstructive pulmonary disease Sibling Diabetes mellitus Mother Hypertension Social History Social History (Updated 09/22/24 @ 06:03 by Allison Mark PA-C) Social History: Surrogate medical decision maker: Ngozi Muller, mother. Code status: Full code. Smoking status: Never smoker Alcohol intake: never Substance use: never Substance use type: unknown Living arrangements: with family Occupation/Education: student Additional occupation/education comments: [employer] studying archeology Spiritual care concerns: No Meds Home Medications and Allergies Home Medications ?Medication ?Instructions ?Recorded ?Confirmed ?Type escitalopram oxalate 10 mg tablet 10 mg PO DAILY 09/22/24 09/22/24 History (Lexapro) Allergies Allergy/AdvReac Type Severity Reaction Status Date / Time No Known Allergies Allergy Verified 09/22/24 00:48 Vital Signs Vital Signs - 24 hr 09/22/24 00:27 09/22/24 00:48 09/22/24 01:31 Temperature 99.7 F H Pulse Rate 137 H 126 H 129 H Respiratory Rate 32 H 28 H 22 H Blood Pressure 144/80 H 134/72 Pulse Oximetry 100 100 100 Oxygen Delivery Room Air 09/22/24 01:46 09/22/24 02:01 09/22/24 02:16 Temperature Pulse Rate 125 H 137 H 120 H Respiratory Rate 18 16 23 H Blood Pressure 133/76 136/59 L 128/73 Pulse Oximetry 100 99 100 Oxygen Delivery 09/22/24 02:31 Temperature Pulse Rate 126 H Respiratory Rate 22 H Blood Pressure 131/76 Pulse Oximetry 100 Oxygen Delivery Exam Narrative: General: Moderately ill-appearing female in the semi-Giron position in bed. Weight: 81.1 kg. BMI: 28.0. HEENT: Normocephalic, atraumatic. Pupils are dilated and sluggishly reactive. Sclera anicteric. Tacky mucous membranes. Neck: Supple. Respiratory: Lungs are clear to auscultation bilaterally. Cardiovascular: Tachycardic with normal S1-S2. Gastrointestinal: Abdomen is soft, nontender, and nondistended with positive bowel sounds. Skin: Warm and dry. Face is flushed. Extremities: No cyanosis, clubbing, or edema. Radial and pedal pulses intact. Neurological: Alert and oriented x4. Cranial nerves 2-12 are grossly intact. Speech is a bit mumbled but easy to understand. Psychiatric: Cooperative. Appears to almost hallucinate at times, staring at nothing obvious. Anxious. H&P: Results Labs Labs: Short CBC 09/22/24 Range/Units 00:42 WBC 6.1 (4.5-10.0) K/mm3 Hgb 11.5 L (12.0-15.0) g/dL Hct 35.2 L (37.0-47.0) % Plt Count 227 (150-375) k/mm3 BMP 09/22/24 00:42 Sodium 141 Potassium 3.8 Chloride 107 Carbon Dioxide 18 L BUN 11 Creatinine 0.81 Glucose 119 H Calcium 9.9 Liver Function 09/22/24 Range/Units 00:42 Total Bilirubin 0.3 (0.2-1.3) mg/dL AST 26 (14-36) U/L ALT 16 (6-35) U/L Alkaline Phosphatase 65 (45-116) U/L Albumin 4.9 (3.7-5.6) g/dL Urine 09/22/24 Range/Units 01:38 Urine Color Yellow (Yellow) Urine Appearance Clear (Clear) Urine pH 6.0 (5.0-9.0) Ur Specific [place] 1.026 (1.001-1.035) Urine Protein Negative (Negative) mg/dL Urine Glucose (UA) Negative (Negative) mg/dL Assessment and Plan Assessment and plan (1) Suicide attempt by acetaminophen overdose: Code(s): T39.1X2A - Poisoning by 4-Aminophenol derivatives, intentional self-harm, initial encounter Status: Acute (2) Intentional diphenhydramine overdose: Code(s): T45.0X2A - Poisoning by antiallergic and antiemetic drugs, intentional self-harm, initial encounter Status: Acute (3) Prolonged QT interval: Code(s): R94.31 - Abnormal electrocardiogram [ECG] [EKG] Status: Acute (4) Urinary retention: Code(s): R33.9 - Retention of urine, unspecified Status: Acute (5) Major depression: Code(s): F32.9 - Major depressive disorder, single episode, unspecified Status: Acute Plan The patient presented to the emergency department about 6 or 7 hours after taking ?somewhere between 15 to 20 pills each? of acetaminophen and diphenhydramine in addition to rubbing alcohol in attempts to commit suicide as detailed in HPI. Labs, imaging, EKG, and all reports were personally reviewed. Initial acetaminophen level was 70 and she was started on acetylcysteine per Poison Control recommendations. Continue IV fluid and close monitoring of acetaminophen levels and liver function tests. She is exhibiting anticholinergic symptoms with low-grade fever, mild delirium, mydriasis, tremulousness, tachycardia, flushed skin, and urinary retention. She received lorazepam in the ED and p.r.n. lorazepam has been ordered if needed. Continue to monitor closely on telemetry. Repeat EKG is pending to ensure that her QTc is improving (QTc 567 on arrival to the ED and she was given magnesium sulfate 2 gm and potassium chloride 40 mEq). Zaldivar catheter has been inserted for urinary retention. Urinalysis showed 6 - 10 WBC and 2+ bacteria though the specimen was contaminated with squamous cells and she has no complaints of urinary symptoms thus no indication for antibiotics at this time. Once medically clear she will need crisis consult for psychiatric hospital placement as this is her 2nd suicide attempt since June. Initiate suicide precautions. A sitter will be in the room with her. Her home medications will be reviewed and resumed as appropriate. Findings and treatment plan were discussed with the patient. Questions were solicited and answered to satisfaction. The patient's medical management will be taken over by the hospitalist team in a.m. Quality VTE Prophylaxis VTE prophylaxis: pharmacologic ordered The patient has been admitted under observation status. Hospitalist [facility] Advance Care Plan I have confirmed that the patient's Advanced Care Plan is present, code status is documented, or surrogate decision maker is listed in patient medical record.: Yes Medication Reconciliation I have utilized all available resources to obtain, update and review the patients current medications (includes all prescriptions, OTC, herbals, cannabis, and nutritional supplements).: Yes Critical Care Time Critical Care Time: Yes Total Critical Care Time: 55 Attestation: Due to a high probability of clinically significant, life threatening deterioration, the patient required my highest level of preparedness to intervene emergently and I personally spent this critical care time directly and personally managing the patient. This critical care time included obtaining a history; examining the patient; pulse oximetry; ordering and review of studies; arranging urgent treatment with development of a management plan; evaluation of patient's response to treatment; frequent reassessment; and discussions with other providers. It was exclusive of separately billable procedures and treating other patients and teaching time. Please see Assessment and Plan section and the rest of the note for further information on patient assessment and treatment.
--- NOTE | 2024-09-22 03:08 | PC.NURSE ---
This patient, Isidra Paul, was admitted to Intensive Care Unit-4. Patient/family oriented to hospital policies and general routines including ID bracelet, bed and alarms, visiting hours, pain management, procedures, bathroom and other care routines, personal items, smoking policy, room service/diet, and visiting hours. Information on how to activate the Rapid Response Team has been discussed. Patient/Family are encouraged to report perceived risks to care and to ask questions if they do not understand what they are told or what they should do.
[2024-09-22] MEDS: LACTATED RINGERS 1,000 ML 150 ML IV CONT (03:39)
[2024-09-22 05:16] LABS: Hematocrit 35.5 % (37.0-47.0); Mean Corpuscular Hemoglobin 27.8 pg (26-34); Mean Corpuscular Volume 89.6 fl (80-100); Mean Platelet Volume 12.9 fl (7.4-10.4); Platelet Count Result 185 k/mm3 (150-375); Red Blood Count 3.96 M/mm3 (4.2-5.4); Red Cell Distribution Width 13.8 % (11.5-14.5); White Blood Count 4.5 K/mm3 (4.5-10.0)
[2024-09-22 05:21] LABS: Acetaminophen 35 ug/mL (10-30)
[2024-09-22 05:24] LABS: MRSA (PCR) NOT DETECTED (NOT DETECTE)
[2024-09-22 05:26] LABS: Alanine Aminotransferase 14 U/L (6-35); Albumin Level 4.4 g/dL (3.7-5.6); Anion Gap 15 mmol/L (4-12); Aspartate Amino Transferase 20 U/L (14-36); Bilirubin,Total 0.3 mg/dL (0.2-1.3); Blood Urea Nitrogen 9 mg/dL (8-21); Calcium 9.4 mg/dL (8.9-10.7); Carbon Dioxide 19 mmol/L (22-30); Chloride 107 mmol/L (98-107); Estimated CRCL calculation 140 ml/min; Estimated Glomerular Filt Rate > 60; Glucose 97 mg/dL (65-110); Magnesium 2.3 mg/dL (1.6-2.3); Potassium 3.9 mmol/L (3.4-5.0); Sodium 141 mmol/L (134-143)
[2024-09-22 05:29] LABS: Alkaline Phosphatase < 20 U/L (45-116)
--- NOTE | 2024-09-22 06:10 | ECG_ITS ---
Test Date: 2024-09-22 06:33:36 Measurements Intervals [place] Rate: 110 P: 48 SC: 188 QRS: -3 QRSD: 92 T: 39 QT: 384 QTc: 522 Interpretive Statements SINUS TACHYCARDIA POSSIBLE LEFT ATRIAL ENLARGEMENT INCOMPLETE RIGHT BUNDLE BRANCH BLOCK ABNORMAL ECG Compared to ECG 09/22/2024 00:48:49 HEART RATE HAS DECREASED Electronically Signed On 09-22-2024 07:04:22 CDT by Fawad Murillo D.O.
[2024-09-22] MEDS: SODIUM BICARBONATE 8.4% 50 MEQ/50 ML SYRINGE 100 MEQ IV PUSH (07:46)
--- NOTE | 2024-09-22 08:56 | WPDCNINT ---
Assessment and Plan Assessment and plan (1) Suicide attempt by acetaminophen overdose: Code(s): T39.1X2A - Poisoning by 4-Aminophenol derivatives, intentional self-harm, initial encounter Status: Acute Assessment and Plan: Patient presented with acetaminophen overdose, initial acetaminophen levels was 70, -poison control was notified, recommended starting N acetylcysteine, repeat acetaminophen level this morning was 35 -continue N acetylcysteine -continue to monitor acetaminophen levels, -will keep in touch with poison Control -once patient is medically stable will have crisis management evaluate the patient for possible placement to a psychiatry facility (2) Intentional diphenhydramine overdose: Code(s): T45.0X2A - Poisoning by antiallergic and antiemetic drugs, intentional self-harm, initial encounter Status: Acute Assessment and Plan: Intentional diphenhydramine overdose, patient does have anticholinergic symptoms, confusion, hallucinations, tachycardia, urinary retention, dilated pupils -Zaldivar catheter was inserted with adequate urine output -continue maintenance IV fluids, will give additional IV fluid bolus -supportive care for now -QTC was prolonged, patient was given bicarb -lorazepam for anxiety, agitation (3) Major depression: Code(s): F32.9 - Major depressive disorder, single episode, unspecified Status: Acute Assessment and Plan: History of major depression, patient on escitalopram at home, will hold for now (4) Prolonged QT interval: Code(s): R94.31 - Abnormal electrocardiogram [ECG] [EKG] Status: Acute Assessment and Plan: Prolonged QTC, patient was given bicarb this morning, willing obtain EKG later today, if QTC remains elevated, will start bicarb infusion (5) Urinary retention: Code(s): R33.9 - Retention of urine, unspecified Status: Acute Assessment and Plan: Likely related to diphenhydramine overdose and anticholinergic symptoms -Zaldivar catheter was inserted with adequate urine out Plan DVT prophylaxis: SCDs Stress ulcer prophylaxis: Not indicated Nutrition: Regular diet, safety tray Code Status: Full code Critical Care Time Spent: 48 minutes Discussed with patient's mother at bedside and updated with patient's condition and plan of care. I answered all the questions Due to a high probability of clinically significant, life threatening deterioration, the patient required my highest level of preparedness to intervene emergently and I personally spent this critical care time directly and personally managing the patient. This critical care time included obtaining a history; examining the patient; pulse oximetry; ordering and review of studies; arranging urgent treatment with development of a management plan; evaluation of patient's response to treatment; frequent reassessment; and discussions with other providers. It was exclusive of separately billable procedures and treating other patients and teaching time. Please see Assessment and Plan section and the rest of the note for further information on patient assessment and treatment This dictation may have been done utilizing a voice recognition system. Attempts have been made to correct errors. However, there may be uncorrected grammatical, spelling, and recognitions errors present. Flight Simulator Teacher Consult Note Consult date: 09/22/24 Reason for consult: Potential overdose of acetaminophen, diphenhydramine and rubbing alcohol HPI: Isidra Paul is a 18 year old female with a past medical history of anxiety, major depression, suicide attempt in June 2024 presented the ED on 09/22/2024 technical training specialist after being brought in a private vehicle by her mother and brother for evaluation after an intentional overdose. Patient admits she took somewhere between 15-20 pills each of acetaminophen and diphenhydramine in addition to drinking an unknown amount of rubbing alcohol. Patient received 2 L of IV fluid bolus, started on maintenance IV fluids. She was also started on N acetylcystine which was recommended by poison control. Patient did have some dizziness, anxiety and nausea, and did vomit 1 unknown are long after ingestion. She also had some hallucinations, confusion, delirium on admission. In the ER patient was tachycardic with a pulse in the 130s, tachypneic with respiratory rate in the 30s, good O2 sats on room air, WBC count 6.1, hemoglobin 11.5, CO2 18, anion gap 16, beta hydroxybutyrate was normal, TSH was 1.65, UA was positive for 2+ leukocyte esterase, 2+ bacteria, occasional squamous cells noted on microscopy. Acetaminophen level was 70, salicylate and ethanol alcohol levels were undetectable. Urine drug screen was negative, EKG showed sinus tachycardia with a QTC of 567. She did receive magnesium and potassium. Poison Control was notified and recommended to start N acetylcystine. She was admitted to ICU for close monitoring Patient seen and examined this morning, is awake, alert, delirious, tangential conversation. Patient easily redirectable, denies any chest pain, nausea, shortness of breath. Remains tachycardic, afebrile, hemodynamically stable. The Zaldivar catheter to be inserted overnight as she could not void, since the catheter insertion patient has had adequate urine output. Review of Systems Review of Systems: All systems reviewed & are unremarkable except as noted in HPI and below PMFSH Past Medical History Medical History (Updated 09/22/24 @ 06:02 by Allison Mark PA-C) Suicide attempt June Anxiety Depression Surgical History Surgical History (Updated 09/22/24 @ 06:02 by Allison Mark PA-C) History of repair of anterior cruciate ligament of right knee Family History Family History Grandparent Chronic obstructive pulmonary disease Sibling Diabetes mellitus Mother Hypertension Social History Social History (Updated 09/22/24 @ 06:03 by Allison Mark PA-C) Social History: Surrogate medical decision maker: Ngozi Muller, mother. Code status: Full code. Smoking status: Never smoker Alcohol intake: never Substance use: never Substance use type: unknown Living arrangements: with family Occupation/Education: student Additional occupation/education comments: [employer] studying archeology Spiritual care concerns: No Meds Home Medications and Allergies Home Medications ?Medication ?Instructions ?Recorded ?Confirmed ?Type escitalopram oxalate 10 mg tablet 10 mg PO DAILY 09/22/24 09/22/24 History (Lexapro) Allergies Allergy/AdvReac Type Severity Reaction Status Date / Time No Known Allergies Allergy Verified 09/22/24 00:48 Vital Signs Vital Signs - 24 hr 09/22/24 00:27 09/22/24 00:48 09/22/24 01:31 Temperature 99.7 F H Pulse Rate 137 H 126 H 129 H Respiratory Rate 32 H 28 H 22 H Blood Pressure 144/80 H 134/72 Pulse Oximetry 100 100 100 Oxygen Delivery Room Air 09/22/24 01:46 09/22/24 02:01 09/22/24 02:16 Temperature Pulse Rate 125 H 137 H 120 H Respiratory Rate 18 16 23 H Blood Pressure 133/76 136/59 L 128/73 Pulse Oximetry 100 99 100 Oxygen Delivery 09/22/24 02:31 09/22/24 03:05 09/22/24 04:00 Temperature Pulse Rate 126 H Respiratory Rate 22 H 32 H Blood Pressure 131/76 Pulse Oximetry 100 Oxygen Delivery Room Air 09/22/24 04:00 09/22/24 04:00 09/22/24 06:00 Temperature 100.2 F H Pulse Rate 122 H 122 H 111 H Respiratory Rate 16 Blood Pressure 115/81 Pulse Oximetry 100 Oxygen Delivery 09/22/24 06:00 09/22/24 08:00 Temperature 100.0 F H 99.7 F H Pulse Rate 111 H 111 H Respiratory Rate 21 H 26 H Blood Pressure 127/82 119/65 Pulse Oximetry 100 100 Oxygen Delivery Exam Narrative: General: Young female, confused, in no acute distress HEENT:? Pupils a dilated, sluggish but reactive on sclera is clear, moist oral mucosa Neck:? Supple Respiratory:? Clear to auscultation bilaterally, no wheezing, adequate air entry Cardiac:? Sinus tachycardia Abdomen:? Soft, nontender, nondistended, normoactive bowel sounds Extremities:? No edema, palpable pedal pulses Neuro:? Patient is delirious, confused, has tangential speech been is redirectable, does answer questions at times, follows simple commands in all extremities Skin:? Warm and dry Psych:? Cooperative Results Labs 09/22/24 04:58 09/22/24 04:58 Labs: Short CBC 09/22/24 09/22/24 Range/Units 00:42 04:58 WBC 6.1 4.5 (4.5-10.0) K/mm3 Hgb 11.5 L 11.0 L (12.0-15.0) g/dL Hct 35.2 L 35.5 L (37.0-47.0) % Plt Count 227 185 (150-375) k/mm3 [facility] 09/22/24 09/22/24 00:42 04:58 Sodium 141 141 Potassium 3.8 3.9 Chloride 107 107 Carbon Dioxide 18 L 19 L BUN 11 9 Creatinine 0.81 0.60 L Glucose 119 H 97 Calcium 9.9 9.4 Liver Function 09/22/24 09/22/24 Range/Units 00:42 04:58 Total Bilirubin 0.3 0.3 (0.2-1.3) mg/dL AST 26 20 (14-36) U/L ALT 16 14 (6-35) U/L Alkaline Phosphatase 65 < 20 L (45-116) U/L Albumin 4.9 4.4 (3.7-5.6) g/dL Urine 09/22/24 Range/Units 01:38 Urine Color Yellow (Yellow) Urine Appearance Clear (Clear) Urine pH 6.0 (5.0-9.0) Ur Specific [place] 1.026 (1.001-1.035) Urine Protein Negative (Negative) mg/dL Urine Glucose (UA) Negative (Negative) mg/dL Quality VTE Prophylaxis VTE prophylaxis: mechanical ordered Hospitalist MIPS Advance Care Plan I have confirmed that the patient's Advanced Care Plan is present, code status is documented, or surrogate decision maker is listed in patient medical record.: Yes Medication Reconciliation I have utilized all available resources to obtain, update and review the patients current medications (includes all prescriptions, OTC, herbals, cannabis, and nutritional supplements).: Yes
--- NOTE | 2024-09-22 10:00 | ECG_ITS ---
Test Date: 2024-09-22 10:23:49 Measurements Intervals [place] Rate: 103 P: 54 [place]: 168 QRS: -11 QRSD: 94 T: 29 QT: 290 QTc: 381 Interpretive Statements SINUS TACHYCARDIA POSSIBLE LEFT ATRIAL ENLARGEMENT INCOMPLETE RIGHT BUNDLE BRANCH BLOCK MINIMAL Q WAVES- HIGH LATERAL LEADS BORDERLINE ST-T WAVE ABNORMALITY- ANTEROLATERAL LEADS BORDERLINE ECG Compared to ECG 09/22/2024 06:33:36 NO SIGNIFICANT CHANGE Electronically Signed On 09-22-2024 11:06:11 CDT by Fawad Murillo D.O.
[2024-09-22 10:16] LABS: Acetaminophen 13 ug/mL (10-30)
[2024-09-22] MEDS: LACTATED RINGERS 1,000 ML 100 ML IV CONT ×2 (11:05→20:13)
[2024-09-22 21:16] LABS: Acetaminophen < 10 ug/mL (10-30)
[2024-09-22 21:17] LABS: Alanine Aminotransferase 10 U/L (6-35); Albumin Level 3.9 g/dL (3.7-5.6); Alkaline Phosphatase 45 U/L (45-116); Anion Gap 11 mmol/L (4-12); Aspartate Amino Transferase 18 U/L (14-36); Bilirubin,Total 0.5 mg/dL (0.2-1.3); Blood Urea Nitrogen 6 mg/dL (8-21); Calcium 9.4 mg/dL (8.9-10.7); Carbon Dioxide 19 mmol/L (22-30); Chloride 108 mmol/L (98-107); Estimated CRCL calculation 140 ml/min; Estimated Glomerular Filt Rate > 60; Glucose 97 mg/dL (65-110); Potassium 3.7 mmol/L (3.4-5.0); Sodium 138 mmol/L (134-143)
[2024-09-23] VITALS (9 sets, daily range): BP systolic 97–113; BP diastolic 58–77; PULSE 60–99; RESP 15–22; TEMP 36.4–36.9; O2SAT 99–100
[2024-09-23] MEDS: LACTATED RINGERS 1,000 ML 100 ML IV CONT (04:45)
[2024-09-23 06:06] LABS: Basophils Percent Auto 0.6 % (0.2-1.2); Eosinophils Absolute Auto 0.2 K/mm3 (0-0.3); Eosinophils Percent Auto 3.2 % (0-4.4); Hematocrit 32.6 % (37.0-47.0); Hemoglobin 9.9 g/dL (12.0-15.0); Lymphocytes Absolute Auto 1.66 K/mm3 (0.9-3.2); Lymphocytes Percent Auto 32.8 % (18.3-44.2); Mean Corpuscular HGB Conc 30.4 g/dl (32-36); Mean Corpuscular Hemoglobin 27.5 pg (26-34); Mean Corpuscular Volume 90.6 fl (80-100); Mean Platelet Volume 12.1 fl (7.4-10.4); Monocytes Absolute Auto 0.4 K/mm3 (0.1-0.6); Monocytes Percent Auto 8.1 % (2.6-8.5); Neutrophils Absolute Auto 2.8 K/mm3 (1.3-6.7); Neutrophils Percent Auto 55.3 % (45.5-73.1); Platelet Count Result 160 k/mm3 (150-375); Red Cell Distribution Width 14.4 % (11.5-14.5); White Blood Count 5.1 K/mm3 (4.5-10.0)
[2024-09-23 06:16] LABS: Acetaminophen < 10 ug/mL (10-30); Ammonia < 9 umol/L (9-30)
[2024-09-23 06:17] LABS: INR 1.2; Prothrombin Time 14.9 Seconds (11.1-14.7)
[2024-09-23 06:18] LABS: Partial Thromboplastin Time 31.8 Seconds (22.3-36.8)
[2024-09-23 06:25] LABS: Alanine Aminotransferase 9 U/L (6-35); Albumin Level 3.7 g/dL (3.7-5.6); Alkaline Phosphatase 47 U/L (45-116); Anion Gap 8 mmol/L (4-12); Aspartate Amino Transferase 17 U/L (14-36); Bilirubin,Total 0.5 mg/dL (0.2-1.3); Blood Urea Nitrogen 8 mg/dL (8-21); Calcium 9.1 mg/dL (8.9-10.7); Carbon Dioxide 20 mmol/L (22-30); Chloride 109 mmol/L (98-107); Estimated CRCL calculation 137 ml/min; Estimated Glomerular Filt Rate > 60; Glucose 81 mg/dL (65-110); Magnesium 1.8 mg/dL (1.6-2.3); Phosphorus 3.5 mg/dL (2.5-4.5); Potassium 3.7 mmol/L (3.4-5.0); Sodium 137 mmol/L (134-143); Total Protein 6.7 g/dL (6.3-8.6)
[2024-09-23] MEDS: POTASSIUM BICARBONATE 25 MEQ TABEF PO (08:52)
--- NOTE | 2024-09-23 09:06 | WPDINTPN ---
Progress Note: A&P Assessment and Plan (1) Suicide attempt by acetaminophen overdose: Code(s): T39.1X2A - Poisoning by 4-Aminophenol derivatives, intentional self-harm, initial encounter Status: Acute Assessment and Plan: Patient presented with acetaminophen overdose, initial acetaminophen levels was 70, -poison control was notified, recommended starting N acetylcysteine, repeat acetaminophen level this morning was 35 -patient has completed course of N acetylcysteine -her acetaminophen level has cleared and LFTs remained normal. -patient has been discharged by poison Control (2) Intentional diphenhydramine overdose: Code(s): T45.0X2A - Poisoning by antiallergic and antiemetic drugs, intentional self-harm, initial encounter Status: Acute Assessment and Plan: Intentional diphenhydramine overdose, patient does have anticholinergic symptoms, confusion, hallucinations, tachycardia, urinary retention, dilated pupils at the time of presentation -Zaldivar catheter was inserted with adequate urine output Symptoms have improved. The past EKG reviewed. Will repeat EKG this morning. DC IV fluid Remove Zaldivar catheter and a voiding trial. Continue supportive care for now (3) Major depression: Code(s): F32.9 - Major depressive disorder, single episode, unspecified Status: Acute Assessment and Plan: History of major depression, patient on escitalopram at home, will hold for now (4) Prolonged QT interval: Code(s): R94.31 - Abnormal electrocardiogram [ECG] [EKG] Status: Acute Assessment and Plan: Prolonged QTC, patient was given bicarb yesterday. Will repeat EKG this morning (5) Urinary retention: Code(s): R33.9 - Retention of urine, unspecified Status: Acute Assessment and Plan: Zaldivar catheter and voiding trial (6) Electrolyte abnormality: Code(s): E87.8 - Other disorders of electrolyte and fluid balance, not elsewhere classified Status: Acute Assessment and Plan: Replace low potassium Plan DVT prophylaxis: SCDs Nutrition: Regular diet, safety tray Code Status: Full code Transfer out of ICU today. Will also have crisis/psychiatry evaluate patient Subjective Date/time seen: 09/23/24 Overnight events reviewed. Afebrile. Sinus rhythm on the monitor She is on room air and sleeping comfortably. On waking her up she denies any complaints and states she feels good. Her vision is not normal because she does not have her glasses or contacts here. But she denies any blurry vision headache dizziness lightheadedness. Patient denies fever, chest pain, shortness of breath, cough, nausea vomiting, abdominal pain,, diarrhea, headache or constipation. All other systems were reviewed and were negative She is on room air. Other vitals acceptable. Good urine output. Zaldivar in place. Review of Systems Review of Systems: All systems reviewed & are unremarkable except as noted in HPI and below Exam Narrative: General: Young female, in no acute distress HEENT:? Pupils a dilated, but reactive to light, moist oral mucosa Neck:? Supple Respiratory:? Clear to auscultation bilaterally, no wheezing, adequate air entry Cardiac:? Sinus tachycardia Abdomen:? Soft, nontender, nondistended, normoactive bowel sounds Extremities:? No edema, palpable pedal pulses Neuro:? Patient is alert awake. Oriented x3. No tremor Skin:? Warm and dry Psych:? Cooperative Objective Data Vital Signs Vital Signs: Vital Signs - 24 hr 09/22/24 10:00 09/22/24 10:00 09/22/24 12:00 Temperature 37.6 C H 37.9 C H Pulse Rate 130 H 130 H 115 H Respiratory Rate 22 H 23 H Blood Pressure 133/91 H 127/78 Pulse Oximetry 100 100 Oxygen Delivery 09/22/24 12:00 09/22/24 12:00 09/22/24 14:00 Temperature 37.9 C H Pulse Rate 115 H 118 H 102 H Respiratory Rate 25 H 20 Blood Pressure 126/82 Pulse Oximetry 100 100 Oxygen Delivery Room Air 09/22/24 14:00 09/22/24 16:00 09/22/24 16:00 Temperature 37.6 C H Pulse Rate 102 H 95 91 Respiratory Rate 22 H 22 H Blood Pressure 121/79 Pulse Oximetry 100 100 Oxygen Delivery Room Air 09/22/24 16:00 09/22/24 18:00 09/22/24 18:00 Temperature Pulse Rate 91 98 98 Respiratory Rate 23 H Blood Pressure 117/71 Pulse Oximetry 100 Oxygen Delivery 09/22/24 20:00 09/22/24 20:00 09/22/24 20:00 Temperature 37.3 C Pulse Rate 80 81 80 Respiratory Rate 22 H 22 H Blood Pressure 113/72 Pulse Oximetry 100 100 Oxygen Delivery Room Air 09/22/24 22:00 09/22/24 22:00 09/23/24 00:00 Temperature 37.1 C Pulse Rate 74 74 71 Respiratory Rate 20 18 Blood Pressure 101/62 Pulse Oximetry 100 100 Oxygen Delivery Room Air 09/23/24 00:00 09/23/24 00:00 09/23/24 02:00 Temperature 36.5 C 36.4 C Pulse Rate 71 71 69 Respiratory Rate 18 18 Blood Pressure 97/63 L 97/58 L Pulse Oximetry 100 99 Oxygen Delivery 09/23/24 02:00 09/23/24 04:00 09/23/24 04:00 Temperature 36.6 C Pulse Rate 69 64 70 Respiratory Rate 22 H 18 Blood Pressure 111/77 Pulse Oximetry 100 100 Oxygen Delivery Room Air 09/23/24 04:00 09/23/24 06:00 09/23/24 06:00 Temperature Pulse Rate 75 69 69 Respiratory Rate 19 Blood Pressure 113/69 Pulse Oximetry 100 Oxygen Delivery 09/23/24 08:00 Temperature 36.9 C Pulse Rate 62 Respiratory Rate 17 Blood Pressure 109/69 Pulse Oximetry 100 Oxygen Delivery Intake/Output Intake/Output: Intake & Output 09/20/24 09/21/24 09/22/24 09/23/24 23:59 23:59 23:59 23:59 Intake Total 3485.0 1388.3 Output Total 5300 550 Balance -1815.0 838.3 Meds/Results Medications: Active Medications Generic Name Dose Route Start Last Admin Trade Name Freq PRN Reason Stop Dose Admin Lorazepam 1 mg 09/22/24 06:20 09/22/24 06:45 Lorazepam Inj (*Crx) 2 Mg/Ml Vial IV PUSH 1 mg Q6H PRN Administration Anxiety Labs Labs: Laboratory Results - last 24 hr 09/22/24 09/22/24 09/23/24 10:01 20:56 06:00 WBC 5.1 RBC 3.60 L Hgb 9.9 L Hct 32.6 L MCV 90.6 MCH 27.5 MCHC 30.4 L RDW 14.4 Plt Count 160 MPV 12.1 H Immature Gran % (Auto) 0.0 Neut % (Auto) 55.3 Lymph % (Auto) 32.8 Edwards % (Auto) 8.1 Eos % (Auto) 3.2 Baso % (Auto) 0.6 Lymph # (Auto) 1.66 Edwards # (Auto) 0.4 Eos # (Auto) 0.2 Baso # (Auto) 0.0 Abs Immat Gran (auto) 0.00 Absolute Neuts (auto) 2.8 Absolute Nucleated RBC 0.000 Nucleated RBC % 0.0 PT 14.9 H INR 1.2 APTT 31.8 Sodium 138 137 Potassium 3.7 3.7 Chloride 108 H 109 H Carbon Dioxide 19 L 20 L Anion Gap 11 8 BUN 6 L 8 Creatinine 0.60 L 0.62 L Estim Creat Clear Calc 140 137 Estimated GFR > 60 > 60 Glucose 97 81 Calcium 9.4 9.1 Phosphorus 3.5 Magnesium 1.8 Total Bilirubin 0.5 0.5 AST 18 17 ALT 10 9 Alkaline Phosphatase 45 47 Ammonia < 9 L Total Protein 7.0 6.7 Albumin 3.9 3.7 Acetaminophen 13 < 10 L < 10 L Quality VTE Prophylaxis VTE prophylaxis: mechanical ordered
--- NOTE | 2024-09-23 09:09 | ECG_ITS ---
Test Date: 2024-09-23 11:43:42 Measurements Intervals [place] Rate: 72 P: 49 [place]: 151 QRS: -2 QRSD: 91 T: 29 QT: 445 QTc: 488 Interpretive Statements SINUS RHYTHM INCOMPLETE RIGHT BUNDLE BRANCH BLOCK BORDERLINE ECG Compared to ECG 09/22/2024 10:23:49 HEART RATE HAS DECREASED Electronically Signed On 09-23-2024 11:45:46 CDT by Fawad Murillo D.O.
[2024-09-24] VITALS: BP 100/61; PULSE 74; PULSE 95; RESP 16; TEMP 36.9; O2SAT 100
[2024-09-24 04:00] VITALS: BP 100/54; PULSE 74; PULSE 77; RESP 20; TEMP 36.8; O2SAT 99
[2024-09-24 08:00] VITALS: BP 106/59; PULSE 72; PULSE 92; RESP 18; TEMP 36.9; O2SAT 99
[2024-09-24 12:00] VITALS: PULSE 122
[2024-09-24 14:08] LABS: Influenza A QL RT-PCR Negative (Negative); Influenza B QL RT-PCR Negative (Negative); RSV RNA, RT-PCR Negative (Negative); SARS-CoV-2 RNA PCR Negative (Negative)
[2024-09-24 15:58] VITALS: BP 117/69; PULSE 97; RESP 21; TEMP 36.9; O2SAT 100
[2024-09-24 16:00] VITALS: PULSE 89
--- NOTE | 2024-09-24 16:21 | P.DS_ITS ---
DS: Admitting Diagnosis Discharge Date 09/24/24 Admitting Diagnosis Intentional overdose. DS: Discharge Diagnosis Discharge Diagnosis (1) Suicide attempt by acetaminophen overdose: Code(s): T39.1X2A - Poisoning by 4-Aminophenol derivatives, intentional self-harm, initial encounter Status: Acute DS: Summary Hospital Course Hospital Course: 'This is a 18-year-old female with history of major depression and suicide attempt in June 2024 who presented to the emergency department via private vehicle accompanied by her mother and brother for evaluation after an intentional overdose. The patient admits that she took ?somewhere between 15 to 20 pills each? of acetaminophen and diphenhydramine in addition to drinking an unknown amount of rubbing alcohol at about 17:00 last evening. She admits that she did this in attempts to take her own life. Several hours later she told her brother and they came in for evaluation. At some point she vomited; it is unknown how long after ingestion. At the time of my evaluation she complains of feelings of dizziness, anxiety, and nausea. She seems to be hallucinating at times and some of her answers to my questions are nonsensical or did not make sense in the context of the question. She denies visual changes, abdominal pain, palpitations, chest pain, shortness of breath, and headache. She denies ingesting anything else other than what is mentioned as above. In the ED: Vital signs on arrival include a temperature of 99.7?, blood pressure 144/80, pulse 137, respiratory rate 32, SpO2 100% on room air. Labs were significant for WBC count of 6.1, hemoglobin 11.5, carbon dioxide 18, anion gap 16, beta hydroxybutyrate 0.15, TSH 1.650 urinalysis was positive for 2+ leukocyte esterase, 6 to 10 WBC, 2+ bacteria, and occasional squamous cells noted on microscopy. Acetaminophen level was 70. Salicylate and ethyl alcohol levels were undetectable. Urine drug screen negative. EKG showed sinus tachycardia with a QTC of 567. She received magnesium sulfate 2 g and potassium chloride 40 mEq. Poison Control was contacted and they recommended starting acetylcysteine. She is being admitted to ICU in this setting for close monitoring.' Patient was admitted to the ICU and received N acetylcysteine, and today Liver enzymes continued to normal. Behavioral health evaluated her today and recommended inpatient psych admit. Patient was discharged to inpatient psych. F/u with PCp in 3-5 days and continue inpatient psych follow up Time Spent with Patient Time attestation: Total time spent providing and/or coordinating discharge services: DS: Data Data Completed and Pending Labs on day of discharge: Labs from last 24 hours 09/24/24 13:13 Influenza A (RT-PCR) Negative Influenza B (RT-PCR) Negative RSV (RT-PCR) Negative SARS-CoV-2 RNA (RT-PCR) Negative Discharge Plan Discharge Attending physician on discharge: Brandan Hopper Consulting providers: Rai Pickett Discharging Clinician: Brandan Hopper Anticipated Discharge Date/Time: 09/24/24 16:16 Patient Disposition: Inpatient Rehab Facility Activity: as tolerated Diet: as tolerated and heart healthy Patient Instructions: Acetaminophen Overdose (DC) Patient Language: Greenlandic Stand Alone Forms: General Discharge Information Follow-up/Referrals: Hernandez Swain MD [Primary Care Provider] - (F/u with PCP in 3-5 days ) Discharge Medications: Continued escitalopram oxalate [Lexapro] 10 mg tablet 10 mg PO DAILY Date of admission: 09/22/24 02:37 Primary Care Provider: Hernandez Swain Admitting Provider: Jose A Baig Attending physician on admission: Jose A Baig Condition: Serious
== END 2024-09-24 17:11 ==
LOC: ANHED 02:41 → ANHICU 05:39
PROVIDERS: Internal Medicine; Physician Assistant; Admitting Provider Internal Medicine; Emergency Provider Emergency Medicine; PCP Emergency Medicine; Visit Provider Internal Medicine
DX: T39.1X2A Poisoning by 4-Aminophenol derivatives, intentional self-harm, initial encounter (principal); T45.0X2A Poisoning by antiallergic and antiemetic drugs, intentional self-harm, initial encounter; T51.2X2A Toxic effect of 2-Propanol, intentional self-harm, initial encounter; F32.9 Major depressive disorder, single episode, unspecified; R94.31 Abnormal electrocardiogram [ECG] [EKG]; R33.9 Retention of urine, unspecified; E87.8 Other disorders of electrolyte and fluid balance, not elsewhere classified; Z20.822 Contact with and (suspected) exposure to COVID-19; Z91.51 Personal history of suicidal behavior
CPT/HCPCS: 36415; 80053; 80143; 80179; 80307; 81001; 81025; 82010; 82077; 82140; 82803; 83735; 84100; 84443; 85025; 85027; 85610; 85730; 87086; 87637; 87641; 93005; 96361; 96365; 96366; 96375; 96376; 99285; A9270; G0378; J0132; J2060; J3475; J7060; J7070; J7120